=== PATIENT | female | born 1950 | race Caucasian/White ===

== ENCOUNTER 2016-08-25 09:49 | Day surgery (SDC) | payer MEDICARE, OTHER ==
[~2016-08-25 09:49] MED LIST: ACETAMIN W/CODE1 TAB PO; CYCLOBENZAPRINE10 M1 PO; DULOXETINE60 MG PO; LISINOPRIL 10MG10 MG PO; MEDROL 4MG. DOSE4 MG PO; PERCOCET1 TA1 PO
[2016-08-25 12:21] VITALS: BP 153/73
== END 2016-08-25 12:10 | disposition home or self-care (01) ==
LOC: SDC 09:49
PROVIDERS: Ophthalmology
PROC: 08RK3JZ Replacement of Left Lens with Synthetic Substitute, Percutaneous Approach (ICD-10-PCS; principal; 2016-08-25 13:00)
DX: H26.9 Unspecified cataract (principal)
CPT/HCPCS: V2632